=== PATIENT | male | born 1990 | race African-American/Black ===

== ENCOUNTER 2017-09-27 23:45 | Emergency (ER) | payer SELFPAY ==
[~2017-09-27] VITALS: Ht 175.3 cm; Wt 76.0 kg
[~2017-09-27 23:45] MED LIST: CEPH-569; HYDR-1348; IBUP-779; SULF1TAB48
[2017-09-28] MEDS: LIDOCAINE/EPINEPHR/TETRACAINE 3ML TP ONE (01:30)
[2017-09-28] MEDS: LIDOCAINE HCL/EPINEPHRINE 1%-EPI 1:100,000 30 ML VIAL INFIL ONE (02:28)
[2017-09-28] MEDS: TETANUS, DIPHTHERIA, PERTUSSIS VAC/PF 0.5ML (>7YR OLD) IM ONE (02:30)
[2017-09-28 02:35] VITALS: BP 130/64
== END 2017-09-28 02:35 | disposition home or self-care (01) ==
LOC: ER 23:45
DX: S51.811A Laceration without foreign body of right forearm, initial encounter (principal); R20.0 Anesthesia of skin; F17.200 Nicotine dependence, unspecified, uncomplicated; Y09 Assault by unspecified means; Y93.89 Activity, other specified; Y92.89 Other specified places as the place of occurrence of the external cause; Y99.8 Other external cause status
CPT/HCPCS: 12002; 73090; 90471; 90715; 99284; Z7610

== ENCOUNTER 2017-10-04 08:44 | Emergency (ER) | payer MEDICAID ==
[~2017-10-04] VITALS: Ht 177.8 cm; Wt 87.8 kg
[2017-10-04 08:46] VITALS: BP 134/86
== END 2017-10-04 12:02 | disposition home or self-care (01) ==
LOC: ER 08:44
DX: Z48.00 Encounter for change or removal of nonsurgical wound dressing (principal)
CPT/HCPCS: 99281; X7700

== ENCOUNTER 2017-10-07 09:58 | Emergency (ER) | payer MEDICAID ==
[~2017-10-07] VITALS: Ht 177.8 cm; Wt 88.0 kg
[2017-10-07 10:08] VITALS: BP 134/86
== END 2017-10-07 11:41 | disposition home or self-care (01) ==
LOC: ER 10:20
DX: S51.811D Laceration without foreign body of right forearm, subsequent encounter (principal); X58.XXXD Exposure to other specified factors, subsequent encounter
CPT/HCPCS: 99281

== ENCOUNTER 2017-10-11 08:25 | Emergency (ER) | payer MEDICAID ==
[~2017-10-11] VITALS: Ht 177.8 cm; Wt 91.0 kg
[2017-10-11 11:10] VITALS: BP 142/85
== END 2017-10-11 11:12 | disposition home or self-care (01) ==
LOC: ER 08:56
DX: Z48.02 Encounter for removal of sutures (principal)
CPT/HCPCS: 99281; Z7610

== ENCOUNTER 2018-02-21 16:33 | Emergency (ER) | payer SELFPAY ==
[~2018-02-21] VITALS: Ht 177.8 cm; Wt 85.0 kg
[2018-02-21] MEDS ORDERED: IBUPROFEN 600MG TABLET PO ONE (16:45)
[2018-02-22] MEDS ORDERED: LIDOCAINE 5% PATCH TOP SCH (00:15)
[2018-02-22 01:05] VITALS: BP 139/90
== END 2018-02-22 01:11 | disposition home or self-care (01) ==
LOC: ER 16:33
DX: S20.212A Contusion of left front wall of thorax, initial encounter (principal); W01.0XXA Fall on same level from slipping, tripping and stumbling without subsequent striking against object, initial encounter; Y93.55 Activity, bike riding; Y92.9 Unspecified place or not applicable
CPT/HCPCS: 71101; 93005; 99284; Z7610